=== PATIENT | female | born 1980 | race African-American/Black ===

== ENCOUNTER 2023-01-17 20:14 | Emergency (ER) | payer OTHER ==
[2023-01-17 20:21] VITALS: BP 163/93; PULSE 82; RESP 20; TEMP 98.1; BMI 30.5
[2023-01-17] MEDS ORDERED: ONDANSETRON 4 MG/2 ML VIAL IVPUSH ONE (20:59)
[2023-01-17] MEDS ORDERED: LIDOCAINE 5% TOPICAL PATCH TP ONE ×3 (20:59→21:00)
[2023-01-17] MEDS ORDERED: ACETAMINOPHEN 1000 MG/100 ML BAG IVPB ONE (20:59)
[2023-01-17] MEDS ORDERED: ACETAMINOPHEN INJECTION 100 ML IVPB ONE (21:09)
[2023-01-17] MEDS ORDERED: ONDANSETRON 4 MG/2 ML VIAL ONE (21:09)
[2023-01-17] MEDS ORDERED: LIDOCAINE 5% TOPICAL PATCH ONE (21:09)
[2023-01-17 21:39] LABS: BASO % 0.8 % (0-2.0); EOS % 2.9 % (0-4.5); HEMATOCRIT 37.9 % (32.4-45.2); HEMOGLOBIN 12.4 GM/dL (10.7-15.3); LYMPH % 29.8 % (8-40); MCH 26.7 pg (25.7-33.7); MCHC 32.6 g/dl (32.0-36.0); MEAN CELL VOLUME 81.9 fl (80-96); MEAN PLT VOLUME 9.4 fl (7.5-11.1); MONO % 7.9 % (3.8-10.2); NEUT % 58.6 % (42.8-82.8); PLATELET COUNT 205 10^3/uL (134-434); RBC 4.63 M/mm3 (3.60-5.2); RDW 13.9 % (11.6-15.6); WHITE BLOOD COUNT 8.2 K/mm3 (4.0-10.0)
[2023-01-17] MEDS ORDERED: SODIUM CHLORIDE 0.9% 500 ML INFUS.BAG IV ONE (21:56)
[2023-01-17] MEDS ORDERED: LIDOCAINE PATCH REMOVAL MC SCH ×2 (22:00)
[2023-01-17 22:13] LABS: BLOOD UREA NITROGEN 17.6 mg/dL (7-18); CALCIUM 9.2 mg/dL (8.5-10.1); MAGNESIUM 2.1 mg/dL (1.8-2.4)
[2023-01-17 22:15] LABS: CREATININE 0.8 mg/dL (0.55-1.3)
[2023-01-17 22:17] LABS: BILIRUBIN,TOTAL 0.5 mg/dL (0.2-1); TOT PROT 8.1 g/dl (6.4-8.2)
[2023-01-18] MEDS ORDERED: KETOROLAC TROMETHAMINE 15 MG/ML VIAL IVPUSH ONE ×2 (00:14→01:14)
[2023-01-18] MEDS ORDERED: KETOROLAC TROMETHAMINE 15 MG/ML VIAL ONE ×2 (00:30→01:20)
[2023-01-18] MEDS ORDERED: METHOCARBAMOL 500 MG TABLET PO ONE (01:15)
[2023-01-18] MEDS ORDERED: METHOCARBAMOL 500 MG TABLET ONE (01:20)
== END 2023-01-18 03:09 | disposition home or self-care (01) ==
LOC: JER 20:14
PROC: 3E033GC Introduction of Other Therapeutic Substance into Peripheral Vein, Percutaneous Approach (ICD-10-PCS; principal; 2023-01-17)
PROC: 3E033GC Introduction of Other Therapeutic Substance into Peripheral Vein, Percutaneous Approach (ICD-10-PCS; 2023-01-17)
PROC: 3E033GC Introduction of Other Therapeutic Substance into Peripheral Vein, Percutaneous Approach (ICD-10-PCS; 2023-01-17)
DX: M54.2 Cervicalgia (principal); M25.512 Pain in left shoulder
CPT/HCPCS: 36415; 70450-TC; 70496-TC; 70498-TC; 71046-TC-FY; 80053; 82550; 83735; 84484; 84703; 85025; 93005; 93010; 99285-25; Q9967